=== PATIENT | female | born 1945 | race Caucasian/White ===

== ENCOUNTER 2021-08-26 10:35 | Outpatient (CLI) | payer MEDICARE ==
[2021-08-26 11:48] LABS: #Eosinphils 0.1 10x3/uL (0.0-0.5); #Monocytes 0.6 10x3/uL (0.0-1.1); #Neutrophils 3.2 10x3/uL (1.5-8.4); %Basophils 0.8 % (0.0-2.0); %Eosinophils 2.3 % (0.0-6.0); %Lymphocytes 22.8 % (18.0-47.0); %Monocytes 11.7 % (0.0-10.0); %Neutrophils 61.8 % (40.0-75.0); Hemoglobin 12.5 g/dL (12.0-15.5); Mean Corpuscular HGB CONC 32.9 g/dL (32.0-36.0); Mean Corpuscular Hemoglobin 31.4 pg (27.0-33.0); Mean Corpuscular Volume 95.5 fl (81.6-98.3); Mean Platelet Volume 9.5 fl (7.4-10.4); Platelet Count 324 10x3/uL (150-450); RBC Distribution Width 11.4 % (11.5-14.5); Red Blood Cell (RBC) Count 3.98 10x6/uL (3.90-5.03); White Blood Cell (WBC) Count 5.1 10x3/uL (3.5-10.5)
[2021-08-26 11:55] LABS: INR-International Normal Ratio 0.9
[2021-08-26 11:56] LABS: Anion Gap 13 mmol/L (10-20); BUN (Urea Nitrogen) 14 mg/dL (9.8-20.1); Calc. Creatinine Clearance 0 mL/min (70-130); Calcium 8.8 mg/dL (7.8-10.44); Carbon Dioxide 26 mmol/L (23-31); Chloride 105 mmol/L (98-107); Glucose 93 mg/dL (83-110); Potassium 4.7 mmol/L (3.5-5.1); Sodium 139 mmol/L (136-145)
[2021-08-27 11:22] LABS: SARS-CoV-2 PCR by NAA Not Detected (NotDetected)
== END 2021-08-26 10:36 | disposition home or self-care (01) ==
LOC: LABBT 10:35
PROVIDERS: ATTEND Orthopaedic Surgery
DX: Z01.818 Encounter for other preprocedural examination (principal); Z20.822 Contact with and (suspected) exposure to COVID-19
CPT/HCPCS: 80048; 85025; 85610; 87081; 93005; U0003; U0005; 93010

== ENCOUNTER 2021-08-31 05:32 | Observation (INO) | payer MEDICARE ==
[2021-08-31] MEDS ORDERED: Tranexamic Acid 1,000 MG/10 ML VIAL ONE (06:02)
[2021-08-31] MEDS ORDERED: Sodium Chloride 0.9% 100 ML ONE (06:02)
[2021-08-31] MEDS ORDERED: ceFAZolin 2 GM/DEX 5% 100 ML BAG ONE (06:02)
[2021-08-31] MEDS ORDERED: Vancomycin 1 GM/200 ML BAG ONE (06:02)
[2021-08-31] MEDS ORDERED: Vancomycin HCl 1.5 GM in Sodium Chloride 0.9% 250 ML 300 ML IVPB SCH (06:15)
[2021-08-31] MEDS ORDERED: Fentanyl 100 MCG/2 ML VIAL ONE ×3 (06:26→09:13)
[2021-08-31] MEDS ORDERED: Midazolam HCl 2 mg/2 ml Vial ONE (06:26)
[2021-08-31] MEDS ORDERED: Lidocaine 1% (PF) 30 ML VIAL ONE (06:26)
[2021-08-31] MEDS ORDERED: ePHEDrine 50 MG/ML VIAL ONE (06:40)
[2021-08-31] MEDS ORDERED: Ondansetron PF 4 MG/2 ML Vial ONE (06:40)
[2021-08-31] MEDS ORDERED: PROPOFOL 200 MG/20 ML VIAL ONE (06:40)
[2021-08-31] MEDS ORDERED: Dexamethasone 20 MG/5 ML VIAL ONE (06:40)
[2021-08-31] MEDS ORDERED: Ketorolac Tromethamine 30 MG/ML VIAL ONE (06:40)
[2021-08-31] MEDS ORDERED: Lidocaine 1% PF 5 ML VIAL ONE (06:40)
[2021-08-31] MEDS ORDERED: Bupivacaine HCl 0.5%/Epinephrine 1:200,000/PF 30 ml Vial ONE (06:40)
[2021-08-31] MEDS ORDERED: Fentanyl 100 MCG/2 ML VIAL IV PRN (07:03)
[2021-08-31] MEDS ORDERED: Zolpidem Tartrate 5 MG TAB PO PRN ×2 (07:15→09:49)
[2021-08-31] MEDS ORDERED: Promethazine HCl 25 MG/ML VIAL IM PRN ×3 (07:15→09:49)
[2021-08-31] MEDS ORDERED: Ondansetron PF 4 MG/2 ML Vial IVP PRN ×2 (07:15→09:49)
[2021-08-31] MEDS ORDERED: HYDROcodone/Acetaminophen 10/325 mg Tablet PO PRN (07:15)
[2021-08-31] MEDS ORDERED: traMADol HCl 50 MG TAB PO PRN ×2 (07:15)
[2021-08-31] MEDS ORDERED: Ropivacaine 0.2% 550 ML 550 ML NERVE BLCK SCH (07:15)
[2021-08-31] MEDS ORDERED: EPINEPHrine 1 MG/ML AMP ONE (08:08)
[2021-08-31] MEDS ORDERED: Bupivacaine 0.25% 10 ML VIAL ONE (08:08)
[2021-08-31] MEDS ORDERED: HYDROmorphone 2 MG/ML VIAL SLOW IVP PRN (08:18)
[2021-08-31] MEDS ORDERED: Ondansetron HCl/PF 4 MG/2 ML Vial IVP PRN (08:18)
[2021-08-31] MEDS ORDERED: PACU-Morphine 4MG/ML VIAL SLOW IVP PRN (08:18)
[2021-08-31] MEDS ORDERED: Promethazine HCl 25 MG/ML VIAL IVPB PRN (08:18)
[2021-08-31] MEDS ORDERED: Ketorolac Tromethamine 30 MG/ML VIAL IM PRN (09:49)
[2021-08-31] MEDS ORDERED: Acetaminophen 325 MG TAB PO PRN (09:49)
[2021-08-31] MEDS ORDERED: diphenhydrAMINE 25 MG CAP PO PRN (09:49)
[2021-08-31] MEDS ORDERED: hydrALAZINE 20 MG/ML VIAL ONE (09:55)
[2021-08-31 11:08] VITALS: BMI 27.4
[2021-08-31] MEDS: Senokot S 8.6-50 MG TAB PO SCH ×2 (11:39→20:10)
[2021-08-31] MEDS: Ferrous Gluconate 324 MG TAB PO SCH ×2 (11:39→20:10)
[2021-08-31] MEDS: Aspirin 81 mg Enteric Coated Tablet PO SCH ×2 (11:39→20:09)
[2021-08-31] MEDS: Multivitamin W/ Minerals 1 TAB PO SCH (11:39)
[2021-08-31] MEDS: Dextrose 5 %-0.45 % NaCl 1,000 ML IV SCH ×2 (11:40→20:15)
[2021-08-31] MEDS: Ketorolac Tromethamine 30 MG/ML VIAL IVP SCH ×3 (12:06→23:03)
[2021-08-31] MEDS ORDERED: CEFAZOLIN 2 GM in Premix Bag 1 BAG IVPB SCH (14:00)
[2021-08-31] MEDS: HYDROcodone/Acetaminophen 10/325 mg Tablet PO PRN (16:24)
[2021-08-31] MEDS ORDERED: Vancomycin 1 GM in Premix Bag 1 BAG IVPB SCH (18:00)
[2021-08-31] MEDS: CEFAZOLIN 2 GM in Premix Bag 1 BAG IVPB SCH (20:08)
[2021-08-31] MEDS ORDERED: Cyclobenzaprine 10 MG TAB PO SCH (21:00)
[2021-09-01] MEDS: HYDROcodone/Acetaminophen 10/325 mg Tablet PO PRN ×3 (00:04→12:51)
[2021-09-01] MEDS: CEFAZOLIN 2 GM in Premix Bag 1 BAG IVPB SCH (02:48)
[2021-09-01 05:06] LABS: Mean Corpuscular HGB CONC 33.9 g/dL (32.0-36.0); Mean Corpuscular Hemoglobin 32.9 pg (27.0-31.0); Mean Corpuscular Volume 97.1 fL (78.0-98.0); Mean Platelet Volume 6.6 fL (7.4-10.4); Platelet Count 279 thou/uL (130-400); RBC Distribution Width 10.3 % (11.5-14.5); Red Blood Cell (RBC) Count 3.34 mill/uL (4.20-5.40); White Blood Cell (WBC) Count 10.9 thou/uL (4.8-10.8)
[2021-09-01] MEDS: Dextrose 5 %-0.45 % NaCl 1,000 ML IV SCH (05:38)
[2021-09-01] MEDS: Ketorolac Tromethamine 30 MG/ML VIAL IVP SCH ×2 (05:39→14:01)
[2021-09-01] MEDS ORDERED: Levothyroxine Sodium 100 MCG TAB PO SCH (06:00)
[2021-09-01] MEDS: Senokot S 8.6-50 MG TAB PO SCH (07:47)
[2021-09-01] MEDS: Aspirin 81 mg Enteric Coated Tablet PO SCH (07:47)
[2021-09-01] MEDS: Multivitamin W/ Minerals 1 TAB PO SCH (07:47)
[2021-09-01] MEDS: Ferrous Gluconate 324 MG TAB PO SCH (07:48)
[2021-09-01] MEDS ORDERED: Citalopram 20 MG TAB PO SCH (09:00)
[2021-09-01 16:22] VITALS: BP 143/72; TEMP 98.1
== END 2021-09-01 16:15 | disposition home or self-care (01) ==
LOC: SDC 05:32 → SURG B 09:49 → EDSTATUS 10:30 → SURG B 14:41 → SDC 14:45
PROVIDERS: ADMIT Orthopaedic Surgery; ATTEND Orthopaedic Surgery
PROC: 0SRC0J9 Replacement of Right Knee Joint with Synthetic Substitute, Cemented, Open Approach (ICD-10-PCS; principal; 2021-08-31)
PROC: 3E0T3BZ Introduction of Anesthetic Agent into Peripheral Nerves and Plexi, Percutaneous Approach (ICD-10-PCS; 2021-08-31)
DX: M17.11 Unilateral primary osteoarthritis, right knee (principal); E03.9 Hypothyroidism, unspecified; Z79.899 Other long term (current) drug therapy; Z96.652 Presence of left artificial knee joint
CPT/HCPCS: 27447; 64448; 73560; 85027; 97110; 97116 ×2; 97139 ×2; 97530; A4306; 36415; 96365; 96366; 96367; 96375; 96376; C1713; C1776; G0378; J0171; J0360; J0690; J1100; J1885; J2001; J2250; J2405; J2704; J2795; J3010; J3370; J3490; J7050; S0020

== ENCOUNTER 2021-09-02 04:35 | Emergency (ER) | payer MEDICARE ==
[2021-09-02] MEDS ORDERED: Morphine 4 MG/ML VIAL ONE (05:17)
[2021-09-02] MEDS ORDERED: Ondansetron PF 4 MG/2 ML Vial ONE (05:17)
[2021-09-02] MEDS ORDERED: Ketorolac Tromethamine 30 MG/ML VIAL ONE (06:05)
== END 2021-09-02 09:15 | disposition home or self-care (01) ==
LOC: ERS 04:35
DX: G89.18 Other acute postprocedural pain (principal); M25.561 Pain in right knee
CPT/HCPCS: 96374; 96375; J1885; J2270; J2405

== ENCOUNTER 2022-06-16 09:25 | Outpatient (CLI) | payer MEDICARE | END 2022-06-16 09:26 | disposition home or self-care (01) | LOC: ULT 09:25 | PROVIDERS: ATTEND Specialist | DX: K80.20 Calculus of gallbladder without cholecystitis without obstruction (principal) | CPT/HCPCS: 76705 ==

== ENCOUNTER 2022-06-30 09:35 | Outpatient (CLI) | payer MEDICARE ==
[2022-06-30 11:27] LABS: ALT (SGPT) 12 U/L (8-55); AST (SGOT) 19 U/L (5-34); Albumin 4.2 g/dL (3.4-4.8); Alkaline Phosphatase 47 U/L (40-110); Anion Gap 13 mmol/L (10-20); Bilirubin, Total 0.4 mg/dL (0.2-1.2); Calc. Creatinine Clearance 0 mL/min (70-130); Calcium 9.3 mg/dL (7.8-10.44); Carbon Dioxide 25 mmol/L (23-31); Chloride 100 mmol/L (98-107); Estimated GFR 69; Globulin 2.3 g/dL (2.4-3.5); Glucose 90 mg/dL (83-110); Potassium 4.8 mmol/L (3.5-5.1); Protein, Total 6.5 g/dL (5.8-8.1); Sodium 133 mmol/L (136-145)
[2022-06-30 12:07] LABS: BUN (Urea Nitrogen) 17 mg/dL (9.8-20.1)
[2022-06-30 17:03] LABS: Hemoglobin A1c 5.3 % (4.0-6.0)
== END 2022-06-30 09:36 | disposition home or self-care (01) ==
LOC: LABBT 09:35
PROVIDERS: ATTEND Specialist
DX: Z01.818 Encounter for other preprocedural examination (principal); K56.699 Other intestinal obstruction unspecified as to partial versus complete obstruction
CPT/HCPCS: 80053; 83036; 93005; 93010

== ENCOUNTER 2022-06-30 10:45 | Inpatient (IN) | payer MEDICARE ==
[2022-07-04 13:08] VITALS: BMI 26.5
[2022-07-05] MEDS ORDERED: Phenylephrine 10 MG/ML VIAL ONE (06:20)
[2022-07-05] MEDS ORDERED: fentaNYL Citrate/PF 100 MCG/2 ML SYRINGE ONE (06:20)
[2022-07-05] MEDS ORDERED: Acetaminophen 500 MG TAB ONE (06:30)
[2022-07-05] MEDS ORDERED: Ketorolac Tromethamine 30 MG/ML VIAL ONE (06:30)
[2022-07-05] MEDS ORDERED: HYDROmorphone 2 MG/ML VIAL ONE (06:38)
[2022-07-05] MEDS ORDERED: Albumin 5% 500 ML ONE (06:38)
[2022-07-05] MEDS ORDERED: SUGAMMADEX SODIUM 200 MG/2 ML VIAL ONE ×2 (06:38→12:21)
[2022-07-05] MEDS ORDERED: Famotidine/PF 20 mg/2ml Vial ONE (06:45)
[2022-07-05 06:50] LABS: SARS-CoV-2 NAA Rapid Test Not Detected (NotDetected)
[2022-07-05] MEDS ORDERED: EPINEPHrine 1 MG/ML AMP ONE (06:52)
[2022-07-05] MEDS ORDERED: Lidocaine 1% (PF) 30 ML VIAL ONE ×2 (06:52→09:00)
[2022-07-05] MEDS ORDERED: PHENYLEPHRINE-NS 100 MCG/ML 10 ML SYRINGE ONE (07:00)
[2022-07-05] MEDS ORDERED: Glycopyrrolate 0.2 MG/ML 5 ML SYRINGE ONE (07:00)
[2022-07-05] MEDS ORDERED: Rocuronium Bromide 10 MG/ML (10ML VIAL) ONE (07:00)
[2022-07-05] MEDS ORDERED: PROPOFOL 200 MG/20 ML VIAL ONE (07:00)
[2022-07-05] MEDS ORDERED: NEOSTIGMINE 3 MG/3 ML SYR 3 MG/3 ML SYRINGE ONE (07:00)
[2022-07-05] MEDS ORDERED: Ondansetron PF 4 MG/2 ML Vial ONE (07:00)
[2022-07-05] MEDS ORDERED: Dexamethasone 4 mg/ml Vial ONE (07:02)
[2022-07-05] MEDS ORDERED: cefOXitin 2 GM VIAL ONE ×2 (07:38→09:50)
[2022-07-05] MEDS ORDERED: Sodium Chloride 0.9% 100 ML ONE (07:38)
[2022-07-05] MEDS ORDERED: Bupivacaine PF 0.5% 30 ML VIAL ONE (08:34)
[2022-07-05] MEDS ORDERED: Morphine 2 MG/ML VIAL SLOW IVP PRN (12:10)
[2022-07-05] MEDS ORDERED: Promethazine HCl 25 MG/ML VIAL IM PRN (12:10)
[2022-07-05] MEDS ORDERED: Morphine 4 MG/ML VIAL SLOW IVP PRN (12:10)
[2022-07-05] MEDS ORDERED: Ondansetron PF 4 MG/2 ML Vial IVP PRN (12:10)
[2022-07-05] MEDS ORDERED: Naloxone HCl 0.4 mg/ml Vial ONE (12:22)
[2022-07-05] MEDS: D5 1/2 NS w/20 mEq KCL 1,000 ML IV SCH (15:14)
[2022-07-05] MEDS: hydrALAZINE 20 MG/ML VIAL SLOW IVP PRN ×2 (15:14→20:25)
[2022-07-05] MEDS: Dicyclomine 10 MG CAP PO SCH ×2 (15:16→20:25)
[2022-07-05] MEDS: Ketorolac Tromethamine 30 MG/ML VIAL IVP SCH (17:19)
[2022-07-05] MEDS: Famotidine 20 MG TAB PO SCH (20:25)
[2022-07-05] MEDS: Enoxaparin Sodium 40 MG/0.4 ML SYRINGE SC SCH (20:25)
[2022-07-05] MEDS: HYDROcodone/Acetaminophen 7.5/325 mg Tablet PO PRN (20:26)
[2022-07-05] MEDS: Famotidine/PF 20 mg/2ml Vial SLOW IVP SCH (23:39)
[2022-07-06] MEDS: D5 1/2 NS w/20 mEq KCL 1,000 ML IV SCH ×4 (00:21→17:32)
[2022-07-06] MEDS: Ketorolac Tromethamine 30 MG/ML VIAL IVP SCH ×4 (00:21→17:32)
[2022-07-06] MEDS: Levothyroxine Sodium 100 MCG TAB PO SCH (05:16)
[2022-07-06] MEDS: Citalopram 20 MG TAB PO SCH (08:32)
[2022-07-06] MEDS: Dicyclomine 10 MG CAP PO SCH ×3 (08:32→21:22)
[2022-07-06] MEDS: Famotidine 20 MG TAB PO SCH ×2 (08:32→21:23)
[2022-07-06] MEDS: Famotidine/PF 20 mg/2ml Vial SLOW IVP SCH ×2 (08:33→22:16)
[2022-07-06] MEDS: Estradiol 1 MG TAB PO SCH (08:33)
[2022-07-06 08:42] LABS: #Lymphocytes 0.7 thou/uL (1.20-3.40); #Monocytes 1.2 thou/uL (0.11-0.59); #Neutrophils 12.1 thou/uL (1.40-6.50); %Basophils 0.3 % (0.0-1.0); %Eosinophils 0.1 % (0.0-10.0); %Monocytes 8.2 % (0.0-10.0); %Neutrophils 86.4 % (42.0-75.0); Hemoglobin 11.8 g/dL (12.0-16.0); Mean Corpuscular HGB CONC 33.8 g/dL (32.0-36.0); Mean Corpuscular Hemoglobin 33.2 pg (27.0-31.0); Mean Corpuscular Volume 98.1 fl (78.0-98.0); Mean Platelet Volume 7.1 fL (7.4-10.4); Platelet Count 253 thou/uL (130-400); RBC Distribution Width 10.5 % (11.5-14.5); Red Blood Cell (RBC) Count 3.56 mill/uL (4.20-5.40)
[2022-07-06 08:56] LABS: Anion Gap 10 mmol/L (10-20); BUN (Urea Nitrogen) 6 mg/dL (9.8-20.1); Calc. Creatinine Clearance 64 mL/min (70-130); Calcium 8.4 mg/dL (7.8-10.44); Carbon Dioxide 23 mmol/L (23-31); Chloride 101 mmol/L (98-107); Estimated GFR 77; Glucose 144 mg/dL (83-110); Potassium 4.3 mmol/L (3.5-5.1); Sodium 130 mmol/L (136-145)
[2022-07-06] MEDS: HYDROcodone/Acetaminophen 7.5/325 mg Tablet PO PRN (21:21)
[2022-07-06] MEDS: Enoxaparin Sodium 40 MG/0.4 ML SYRINGE SC SCH (21:23)
[2022-07-07] MEDS: Ketorolac Tromethamine 30 MG/ML VIAL IVP SCH ×3 (00:16→13:59)
[2022-07-07] MEDS: Levothyroxine Sodium 100 MCG TAB PO SCH (05:37)
[2022-07-07] MEDS: D5 1/2 NS w/20 mEq KCL 1,000 ML IV SCH ×2 (05:38→14:01)
[2022-07-07] MEDS: Citalopram 20 MG TAB PO SCH (09:49)
[2022-07-07] MEDS: Famotidine 20 MG TAB PO SCH (09:49)
[2022-07-07] MEDS: Estradiol 1 MG TAB PO SCH (09:49)
[2022-07-07] MEDS: Famotidine/PF 20 mg/2ml Vial SLOW IVP SCH (09:50)
[2022-07-07] MEDS: Dicyclomine 10 MG CAP PO SCH ×2 (10:14→15:23)
[2022-07-07] MEDS: HYDROcodone/Acetaminophen 7.5/325 mg Tablet PO PRN (12:24)
[2022-07-07 12:40] VITALS: TEMP 97.6
[2022-07-07] MEDS ORDERED: D5 1/2 NS w/20 mEq KCL 1,000 ML IV SCH (14:45)
[2022-07-07 16:35] VITALS: BP 145/67
== END 2022-07-07 16:13 | disposition home or self-care (01) | DRG 330 ==
LOC: SURG A 07-05 05:56 → SJJU 07-05 14:23
PROVIDERS: ADMIT Specialist; ATTEND Specialist
PROC: 0JQC0ZZ Repair Pelvic Region Subcutaneous Tissue and Fascia, Open Approach (ICD-10-PCS; principal; 2022-07-05)
PROC: 0DBN0ZZ Excision of Sigmoid Colon, Open Approach (ICD-10-PCS; 2022-07-07)
PROC: 0FT44ZZ Resection of Gallbladder, Percutaneous Endoscopic Approach (ICD-10-PCS; 2022-07-07)
DX: K56.699 Other intestinal obstruction unspecified as to partial versus complete obstruction (principal); K57.32 Diverticulitis of large intestine without perforation or abscess without bleeding; K80.10 Calculus of gallbladder with chronic cholecystitis without obstruction; N81.6 Rectocele; E03.9 Hypothyroidism, unspecified; I10 Essential (primary) hypertension; K21.9 Gastro-esophageal reflux disease without esophagitis; Z90.710 Acquired absence of both cervix and uterus; Z90.49 Acquired absence of other specified parts of digestive tract; Z90.09 Acquired absence of other part of head and neck; Z79.899 Other long term (current) drug therapy
CPT/HCPCS: 36415; 36416; 80048; 85025; 88304; 88307; A4649; C1889; J0171; J0360; J0694; J1100; J1170; J1650; J1885; J2001; J2270; J2310; J2370; J2405; J2704; J3480; J3490; P9045; S0020; S0028; U0002

== ENCOUNTER 2023-01-10 13:53 | Outpatient (CLI) | payer MEDICARE | END 2023-01-10 13:54 | disposition home or self-care (01) | LOC: BICMAMMO 13:53 | PROVIDERS: ATTEND Family Medicine | DX: Z12.31 Encounter for screening mammogram for malignant neoplasm of breast (principal) | CPT/HCPCS: 77063; 77067 ==

== ENCOUNTER 2024-05-29 07:42 | Outpatient (CLI) | payer MEDICARE ==
[2024-05-29] MEDS ORDERED: Iopamidol 370 76% 100 ML VIAL ONE (12:01)
== END 2024-05-29 07:43 | disposition home or self-care (01) ==
LOC: BICCT 07:42
PROVIDERS: ATTEND Specialist
DX: K56.699 Other intestinal obstruction unspecified as to partial versus complete obstruction (principal)
CPT/HCPCS: 36415; 74177; 82565; Q9967

== ENCOUNTER 2025-06-09 10:04 | Outpatient (CLI) | payer BC | END 2025-06-09 10:05 | disposition home or self-care (01) | LOC: SCSRAD 10:04 | PROVIDERS: ATTEND Family Medicine | DX: R06.00 Dyspnea, unspecified (principal) | CPT/HCPCS: 71046 ==